=== PATIENT | female | born 2000 | race Caucasian/White ===

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

== ENCOUNTER 2022-05-04 01:31 | Emergency (ER) | payer OTHER, BC ==
[~2022-05-04] VITALS: Ht 152.4 cm; Wt 88.5 kg
[2022-05-04 02:25] VITALS: BP_SYST 128
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
--- NOTE | 2022-05-04 06:40 | NUR ---
AMBULATORY TO BATHROOM WITH STEADY GAIT.
[2022-05-04] MEDS ORDERED: ONDANSETRON HCL 4 MG/2 ML VIAL IVP ONE (06:45)
[2022-05-04] MEDS ORDERED: NACL 0.9% 1,000 ML IV ONE (06:45)
[2022-05-04] MEDS ORDERED: MORPHINE 4 MG INJ. 4 MG/ML VIAL IVP ONE (06:45)
--- NOTE | 2022-05-04 06:46 | NUR ---
Urine specimen collected for preg test= negative result. AWARE.
--- NOTE | 2022-05-04 06:51 | NUR ---
PT SIGNED CONSENT FOR CT W/ CONTRAST.
--- NOTE | 2022-05-04 06:52 | NUR ---
# 20 gauge angiocath placed to R AC. Use of asceptic technique. Opsite placed over site. Blood return noted. Blood for lab drawn from site. Flushed with 10 cc of normal saline. No evidence of infiltration noted. Patient tolerated well.
--- NOTE | 2022-05-04 06:58 | NUR ---
RADIOLOGY MADE AWARE OF ORDER FOR CT. PT IS READY FOR CIRCUS HAND.
--- NOTE | 2022-05-04 07:10 | NUR ---
REPORT AND CARE ENDORSED OVER TO BRUNILDA PRESSLEY.
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
--- NOTE | 2022-05-04 07:41 | NUR ---
LABS AND COVID OBTAINED. PT TAKEN TO CT SCAN.
[2022-05-04 07:50] LABS: BASOPHILS # (AUTO) 0.1 K/uL (0.0-0.2); BASOPHILS % (AUTO) 0.4 % (0.0-2.0); EOSINOPHILS % (AUTO) 0.1 % (0.0-4.0); LYMPHOCYTES # (AUTO) 1.2 K/uL (1.0-5.5); LYMPHOCYTES % (AUTO) 8.3 % (20.5-51.5); MEAN CORPUSCULAR VOLUME 87 fL (79.0-98.0); MONOCYTES # (AUTO) 0.8 K/uL (0.0-1.0); MONOCYTES % (AUTO) 5.5 % (1.7-9.3); NEUTROPHILS # (AUTO) 12.6 K/uL (1.8-7.7); NEUTROPHILS % (AUTO) 85.7 % (40.0-70.0); PLATELET COUNT (AUTO) 249 K/uL (130-430); RED BLOOD CELL COUNT(AUTO) 3.92 MIL/uL (4.2-6.2); RED CELL DISTRIBUTION WIDTH 12.8 % (9.0-15.0); WHITE BLOOD COUNT (AUTO) 14.7 K/uL (4.8-10.8)
[2022-05-04] MEDS ORDERED: MORPHINE 2 MG/ML INJ. SYRINGE IVP ONE (08:15)
[2022-05-04 08:28] LABS: CALCIUM 8.8 mg/dL (8.4-11.0); CREATININE 0.85 mg/dL (0.55-1.30); POTASSIUM 3.5 mmol/L (3.5-5.1)
[2022-05-04 08:42] LABS: ALBUMIN 3.2 g/dL (3.4-4.8); TOTAL BILIRUBIN 0.4 mg/dL (0.0-1.0)
--- NOTE | 2022-05-04 09:30 | NUR ---
DR. GONZALEZ AT BEDSIDE TO DISCUSS POC. PT WILL BE GIVEN MEDS FOR DISCOMFORT AND DISCHARGE HOME. PT AGREED WITH POC.
[2022-05-04] MEDS ORDERED: IBUP-1969 PO (09:42)
[2022-05-04] MEDS ORDERED: LIDO1ADH71 TD (09:42)
[2022-05-04] MEDS ORDERED: CYCL10TA24 PO (09:42)
[2022-05-04 10:30] VITALS: BP_SYST 107
--- NOTE | 2022-05-04 10:32 | NUR ---
Patient given written and verbal discharge instructions and verbalizes understanding. ER MD discussed with patient the results and treatment provided. Patient in stable condition. ID arm band removed. IV catheter removed intact and dressing applied, no active bleeding. Rx of IBUPROFEN, LIDOCAINE given. Patient educated on pain management and to follow up with PMD. Pain Scale 3/10. Opportunity for questions provided and answered. Medication side effect fact sheet provided.
== END 2022-05-04 10:30 | disposition home or self-care (01) ==
LOC: SED 01:31
DX: S30.1XXA Contusion of abdominal wall, initial encounter (principal); S20.211A Contusion of right front wall of thorax, initial encounter; Z79.899 Other long term (current) drug therapy; Z20.822 Contact with and (suspected) exposure to COVID-19; V89.2XXA Person injured in unspecified motor-vehicle accident, traffic, initial encounter; Y93.89 Activity, other specified; Y92.89 Other specified places as the place of occurrence of the external cause; Y99.8 Other external cause status
CPT/HCPCS: 99285; 70450; 96374; 96361; 96375; 87426; 80053; 85025; 86886; 86900; 86901; 36415; 71260; 72125; 74177; 81025; 76376; J2405; J2270; Q9967; J7030